=== PATIENT | male | born 1960 | race Two or more races ===

== ENCOUNTER 2022-04-20 09:23 | Emergency (ER) | payer OTHER ==
[~2022-04-20] VITALS: Ht 185.4 cm; Wt 113.4 kg
--- NOTE | 2022-04-20 09:40 | NUR ---
RECIEVED PT 62 YRS MALE WAKING IN C/O headack started this morning after completed HD awake and alert diness any weeknes or nubmess
--- NOTE | 2022-04-20 09:45 | NUR ---
seen by DR Toribio GANN AND EXAMIN PT ORDER WAS GIVEN
[2022-04-20] MEDS: PROCHLORPERAZINE EDISYLATE 10 MG/2 ML VIAL IM ONE (09:53)
[2022-04-20] MEDS ORDERED: ACETAMINOPHEN ES 500 MG TABLET ONE (09:57)
[2022-04-20] MEDS ORDERED: SUMATRIPTAN SUCCINATE 6 MG/0.5 ML VIAL SQ ONE (09:57)
[2022-04-20] MEDS ORDERED: PROCHLORPERAZINE EDISYLATE 10 MG/2 ML VIAL ONE (09:57)
[2022-04-20] MEDS: SUMATRIPTAN SUCCINATE 6 MG/0.5 ML VIAL SQ ONE (10:00)
[2022-04-20] MEDS: ACETAMINOPHEN ES 500 MG TABLET PO ONE (10:00)
--- NOTE | 2022-04-20 10:12 | NUR ---
TO CT SCAN OF HEAD VIA WC
--- NOTE | 2022-04-20 10:24 | NUR ---
DR. MARQUEZ NOW SPEAKING TO DR. GANN
--- NOTE | 2022-04-20 10:24 | NUR ---
SENT CT IMAGES TO DR. MARQUEZ
--- NOTE | 2022-04-20 10:25 | NUR ---
DR. MARQUEZ NOTIFIED DR. GANN THAT THE PT WILL BE GOING TO [facility]
--- NOTE | 2022-04-20 10:32 | NUR ---
SPOKE TO [facility] [place] AND WAS NOTIFIED OF PT STATUS. AND FAXED FACESHEET TO [phone]. AWAITING A CALL BACK FOR TRANSPORT ETA
--- NOTE | 2022-04-20 10:42 | NUR ---
COVID SWAB DONE AND SENT TO LAB
[2022-04-20 10:45] LABS: BASOPHILS % (AUTO) 0.6 % (0.0-2.0); EOSINOPHILS % (AUTO) 2.6 % (0.0-6.0); HEMATOCRIT 37 % (39-51); LYMPHOCYTES # (AUTO) 0.9 K/uL (0.8-4.8); LYMPHOCYTES % (AUTO) 12.1 % (20.0-44.0); MEAN CORPUSCULAR HGB CONC 33 g/dl (31.0-36.0); MEAN CORPUSCULAR VOLUME 90 fL (80-96); MONOCYTES # (AUTO) 0.5 K/uL (0.1-1.30); MONOCYTES % (AUTO) 6.5 % (2.0-12.0); NEUTROPHILS % (AUTO) 78.2 % (43.0-81.0); PLATELET COUNT (AUTO) 141 K/uL (150-450); RED BLOOD CELL COUNT(AUTO) 4.04 MIL/uL (4.5-6.0); WHITE BLOOD COUNT (AUTO) 7.6 K/uL (4.3-11.0)
[2022-04-20 11:02] LABS: CALCIUM, SERUM 8.9 mg/dL (8.5-10.1); CREATININE 2.7 mg/dL (0.6-1.3)
--- NOTE | 2022-04-20 11:30 | NUR ---
SPOKE TO [facility]: [phone] FAX COVID RESULT TO [phone]
--- NOTE | 2022-04-20 12:06 | NUR ---
resting and comfortale no weekness n pain controled
--- NOTE | 2022-04-20 13:56 | NUR ---
TRANSPORT ETA 25 MINS VIA [facility].
--- NOTE | 2022-04-20 13:56 | NUR ---
[facility]
--- NOTE | 2022-04-20 13:58 | NUR ---
CALLED JEWEL MCGOWAN TO RECIEVE ACCEPTANCE INFO BED NUMBER [id number] NUMBER FOR REPORT [phone]
--- NOTE | 2022-04-20 14:00 | NUR ---
DR. GANN AWRE ABOUT HEADACK NOT RESOLVE 07/14 NO NEW ORDER SPOOK WITH PT
--- NOTE | 2022-04-20 14:00 | NUR ---
RECIEVED A CALL FROM JANE FROM [facility]. WE NEED TO CALL TO GIVE NURSE TO NURSE REPORT @ [phone]. ALSO WANTED TO GIVE US AN UPDATED ROOM NUMBER. PATIENT WILL BE GOING TO ROOM [id number].
--- NOTE | 2022-04-20 14:10 | NUR ---
CAlled dandre perry bed # [id number] spook with [facility] RN Plan to call me back for change the room wating for call back
[2022-04-20 14:35] VITALS: BP 138/94
--- NOTE | 2022-04-20 14:45 | NUR ---
HAND OF TO [facility] PT TRANSFER BY [facility]
--- NOTE | 2022-04-20 14:45 | NUR ---
CALLED [facility] WITH [facility]
== END 2022-04-20 15:04 | disposition admitted as inpatient to this hospital (09) ==
LOC: ER 09:35
DX: I62.9 Nontraumatic intracranial hemorrhage, unspecified (principal); E11.22 Type 2 diabetes mellitus with diabetic chronic kidney disease; N18.6 End stage renal disease; Z99.2 Dependence on renal dialysis; I48.91 Unspecified atrial fibrillation; I25.2 Old myocardial infarction; Z95.0 Presence of cardiac pacemaker; Z20.822 Contact with and (suspected) exposure to COVID-19
CPT/HCPCS: 36415; 70450; 71045; 80048; 82962; 85025; 85730; 87426; 93005; 96372 ×2; 99291; 99292; C9803; J0780; J3030